=== PATIENT | female | born 1985 | race Hispanic/Latino ===

== ENCOUNTER 2019-09-09 13:59 | Emergency (ER) | payer OTHER, SELFPAY ==
[2019-09-09 14:00] VITALS: BP 145/103; PULSE 67; RESP 16; TEMP 36.4; BMI 29.7
--- NOTE | 2019-09-09 14:28 | ED.VISSUMM ---
- ER Visit Summary Date of Service: 09/09/19 Chief Complaint: Left middle finger laceration History of Present Illness: The patient is a 34 F presenting with laceration to left middle finger. Patient was at work and she was cutting a [place] and accidentally cut her left middle finger with a knife. Her tetanus is up-to-date. No other injuries. Physical Examination: Vitals are stable. Patient is afebrile. Alert no acute distress. HEENT exam is unremarkable. Neck is supple. Lungs are clear and equal bilaterally. Heart is regular rate and rhythm. Extremities 1 cm distal left middle finger laceration. Nail is intact. Tendon function normal. Normal cap refill. Skin is warm and dry. No focal neurologic deficit. Remainder of exam is unremarkable. Emergency Department Course and Treatment: Digital block was performed. Irrigated with saline. 3, 5-0 simple sutures were placed. Patient tolerated this well. Advised wound care instructions. Advised follow up with [facility]. Advised return to ED for worsening complaints. Disposition: Discharge home Impression: Left middle finger laceration, laceration repair This note was generated with [employer] dictation software. It may contain incorrect words, spelling, and punctuation that were not noted in review of the chart prior to signing ED Disposition - Plan for ED Patient: Instructions: ED Laceration Hand Referrals: [facility] [GROUP OF PHYSICIANS] -
--- NOTE | 2019-09-09 15:30 | ED.DEP ---
ED Disposition - Plan for ED Patient: Instructions: ED Laceration Hand Referrals: [facility] [GROUP OF PHYSICIANS] -
== END 2019-09-09 16:06 | disposition home or self-care (01) ==
LOC: ED 15:54
PROVIDERS: Emergency Provider Emergency Medicine
DX: S61.213A Laceration without foreign body of left middle finger without damage to nail, initial encounter (principal); W26.0XXA Contact with knife, initial encounter; Y93.9 Activity, unspecified; Y92.9 Unspecified place or not applicable
CPT/HCPCS: 12001; 99283